=== PATIENT | male | born 1990 | race American Indian/Alaskan Native ===

== ENCOUNTER 2019-09-05 23:15 | Emergency (ER) | payer SELFPAY ==
[2019-09-05] MEDS ORDERED: IBUPROFEN 600 MG TAB PO ONE (23:20)
[2019-09-05 23:23] VITALS: BP 136/93
== END 2019-09-06 03:20 | disposition left against medical advice (07) ==
LOC: ED 23:15
DX: K08.89 Other specified disorders of teeth and supporting structures (principal); Z53.21 Procedure and treatment not carried out due to patient leaving prior to being seen by health care provider

== ENCOUNTER 2019-09-12 15:35 | Emergency (ER) | payer SELFPAY ==
[2019-09-12 17:17] VITALS: BP 118/68
[2019-09-12] MEDS ORDERED: BUTALB/ACETAMINOPHEN/CAFFEINE TAB PO ONE (17:18)
--- NOTE | 2019-09-12 17:20 | Emergency Department Report ---
Chief Complaint: Headache Stated Complaint: HEAD PAIN Time Seen by Provider: 09/12/19 17:17 - HPI History of Present Illness: pt is a 28 y/o M p/w a cc of KENDALL. Pt states he's had a left sided KENDALL x 30 days. Pt states the KENDALL worsened over the last 3 days and he now feels off balance. Pt denies preceeding trauma. Pt gives pain a score of 10/10 - Exam Vital Signs: Vital Signs 09/12/19 17:16 Temperature 98.5 F Pulse Rate 69 Respiratory 16 Rate Blood Pressure 118/68 [Right] O2 Sat by Pulse 99 Oximetry MSE screening note: Focused history and physical exam performed. Due to findings the following was ordered: ct head fioricet ED Disposition for MSE Condition: Stable
--- NOTE | 2019-09-12 18:37 | Cat Scan Report ---
CT head/brain wo con INDICATION: Left-sided headache. TECHNIQUE: Routine CT head without contrast. All CT scans at this location are performed using CT dos e reduction for ALARA by means of automated exposure control. COMPARISON: Head CT 06/26/2019 FINDINGS: BRAIN / INTRACRANIAL CONTENTS: No acute hemorrhage, mass effect, midline shift, or hydrocephalus. No appreciable acute large territorial or lacunar infarct. No chronic infarct or focal atrophy. Normal b rain volume and ventricular/sulcal size for age. ORBITS: No significant abnormality of visualized orbits. SINUSES / MASTOIDS: Small mucous retention cyst in the right maxillary sinus. ADDITIONAL FINDINGS: None. IMPRESSION: 1. No acute intracranial abnormality. Signer Name: Billy Mc MD Signed: 09/12/2019 6:33 PM Workstation Name: [id number]
--- NOTE | 2019-09-12 19:59 | Emergency Department Report ---
ED Headache HPI - General Chief Complaint: Headache Stated Complaint: HEAD PAIN Time Seen by Provider: 09/12/19 17:17 - History of Present Illness Initial Comments: 28-year-old -[place] male presents to the emergency room complaining of toothache for 1 month. Patient also complains of left side headache pain getting worse. Patient reports he has taken [id number] meds without any resolution of pain. Patient is aware that he has multiple dental issues. Patient has not followed up with a dentist. Timing/Duration: waxing and waning (For 1 month) Quality: severe Head Injury Location: temporal (Left side) Recent Head Trauma: no recent headache/trauma Allergies/Adverse Reactions: Allergies No Known Allergies Allergy (Verified 09/05/19 23:20) ED Review of Systems ROS: Stated complaint: HEAD PAIN Other details as noted in HPI Comment: All other systems reviewed and negative ED Past Medical Hx - Past Medical History Previous Medical History?: Yes Additional medical history: Dental caries - Surgical History Past Surgical History?: No - Social History Smoking Status: Never Smoker Substance Use Type: Non Opiate Pain ED Physical Exam - General Limitations: No Limitations General appearance: alert, in distress (Appears uncomfortable) - Head Head exam: Present: atraumatic, normocephalic - Eye Eye exam: Present: normal appearance - Expanded ENT Exam Expanded Teeth exam: Present: dental caries, fractured tooth #. Absent: gingival enlargement - Neck Neck exam: Present: normal inspection, full ROM - Neurological Exam Neurological exam: Present: alert, oriented X3 - Psychiatric Psychiatric exam: Present: normal affect, normal mood - Skin Skin exam: Present: warm, dry, intact, normal color. Absent: rash ED Course Vital Signs 09/12/19 17:16 Temperature 98.5 F Pulse Rate 69 Respiratory 16 Rate Blood Pressure 118/68 [Right] O2 Sat by Pulse 99 Oximetry ED Medical Decision Making - Radiology Data Radiology results: report reviewed Patient: CHEYANNE ANGEL II MR# : [id number] : 1990 Acct:[id number] Age/Sex: 28 / M ADM Date: 09/12/19 Loc: ED Attending Dr: Ordering Physician: URSZULA STOKES MD Date of Service: 09/12/19 Procedure(s): CT head/brain wo con Accession Number(s): [id number] cc: URSZULA STOKES MD CT head/brain wo con INDICATION: Left-sided headache. TECHNIQUE: Routine CT head without contrast. All CT scans at this location are performed using CT dose reduction for ALARA by means of automated exposure control. COMPARISON: Head CT 06/26/2019 FINDINGS: BRAIN / INTRACRANIAL CONTENTS: No acute hemorrhage, mass effect, midline shift, or hydrocephalus. No appreciable acute large territorial or lacunar infarct. No chronic infarct or focal atrophy. Normal brain volume and ventricular/sulcal size for age. ORBITS: No significant abnormality of visualized orbits. SINUSES / MASTOIDS: Small mucous retention cyst in the right maxillary sinus. ADDITIONAL FINDINGS: None. IMPRESSION: 1. No acute intracranial abnormality. Signer Name: Billy Mc MD Signed: 09/12/2019 6:33 PM Workstation Name: [id number] Transcribed By: MELCHOR Dictated By: Billy Mc MD Electronically Authenticated By: Billy Mc MD Signed Date/Time: 09/12/191832 DD/ 30 TD/TT: - Medical Decision Making 28-year-old -[place] male presents to the emergency room complaining of toothache for 1 month. Patient also complains of left side headache pain getting worse. Patient reports he has taken [id number] meds without any resolution of pain. Patient is aware that he has multiple dental issues. Patient has not followed up with a dentist. CT scan is negative for any abnormalities. Discussed with patient that he needs to follow-up with a dentist. Handouts will be given to patient for community dental contact lens assistant. Critical care attestation.: If time is entered above; I have spent that time in minutes in the direct care of this critically ill patient, excluding procedure time. ED Disposition Clinical Impression: Dental caries, Headache Disposition: DC-01 TO HOME OR SELFCARE Is pt being admited?: No Does the pt Need Aspirin: No Condition: Stable Instructions: Acute Headache (ED), Dental Caries (ED) Additional Instructions: Take Tylenol or ibuprofen for pain management follow-up with the dentist I have listed several below for your convenience. Referrals: PRIMARY CARE, [Primary Care Provider] - 3-5 Days [facility] [Outside] - 3-5 Days [facility] [Outside] - 3-5 Days [facility] [Outside] - 3-5 Days
== END 2019-09-12 20:17 | disposition home or self-care (01) ==
LOC: ED 15:35
DX: K02.9 Dental caries, unspecified (principal); R51 Headache
CPT/HCPCS: 70450